=== PATIENT | female | born 1995 | race Caucasian/White ===

== ENCOUNTER 2017-02-28 15:49 | Emergency (ER) | payer SELFPAY ==
[~2017-02-28] VITALS: Ht 157.5 cm; Wt 68.0 kg
[~2017-02-28 15:49] MED LIST: PROZ20CA11 PO
[2017-02-28 15:50] VITALS: BP 138/96; PULSE 102; RESP 20; TEMP 98.7; O2SAT 97
--- NOTE | 2017-02-28 15:55 | PD ---
Physical Exam Date Seen by Provider: Feb 28, 2017 Time Seen by Provider: 15:54 Data Data Last Documented VS Vital Signs Date Time Temp Pulse Resp B/P Pulse Ox O2 Delivery O2 Flow Rate FiO2 02/28/17 15:50 98.7 102 20 138/96 97 MDM Supervised Visit with [facility]: No Narrative Course 21 YO F with complaint of L knee pain. ACL replacement 01/27. States lost knee immobilizer. Vitals reviewed. Seen in triage, awaiting bed placement. Mariah Madden Feb 28, 2017 15:54
== END 2017-02-28 16:59 | disposition left against medical advice (07) ==
LOC: NED 15:49
DX: M25.562 Pain in left knee (principal); Z53.21 Procedure and treatment not carried out due to patient leaving prior to being seen by health care provider
CPT/HCPCS: 99281